=== PATIENT | female | born 1995 | race Caucasian/White ===

== ENCOUNTER 2019-06-06 17:08 | Emergency (ER) | payer OTHER ==
[~2019-06-06] VITALS: Ht 152.4 cm; Wt 88.0 kg
[2019-06-06 18:20] VITALS: BP 142/89
== END 2019-06-06 18:20 | disposition home or self-care (01) ==
LOC: ED 17:08
DX: T63.481A Toxic effect of venom of other arthropod, accidental (unintentional), initial encounter (principal)

== ENCOUNTER 2019-08-18 12:35 | Emergency (ER) | payer OTHER ==
[~2019-08-18] VITALS: Ht 152.4 cm; Wt 84.0 kg
[2019-08-18] MEDS ORDERED: PENICILLN VK500 MG PO (12:57)
[2019-08-18 13:05] VITALS: BP 134/77
== END 2019-08-18 13:05 | disposition home or self-care (01) ==
LOC: ED 12:35
DX: K04.7 Periapical abscess without sinus (principal)

== ENCOUNTER 2019-11-08 | Emergency (ER) | payer OTHER ==
[~2019-11-08] MED LIST: PENICILLN VK500 MG PO
[2019-11-08 15:07] LABS: HEMATOCRIT 34.8 % (37.0-47.0); HEMOGLOBIN 11.6 g/dl (12.0-16.0); IMMATURE GRANULOCYTES 0.5 % (0.0-5.0); MEAN CORPUSCULAR HGB 28.8 pG CALC (26.0-32.0); MEAN CORPUSCULAR HGB CONC 33.3 g/L CALC (32.0-36.0); NEUT# 4.12 thou/uL (2.00-7.15); RED BLOOD COUNT 4.03 mill/uL (4.20-5.60)
[2019-11-08 15:10] LABS: MEAN CELL VOLUME 86.4 fL CALC (80.0-100.0)
[2019-11-08 15:27] LABS: ACT PARTIAL THROMBO TIME 25.7 SECONDS (20.0-32.5)
[2019-11-08 15:28] LABS: ALKALINE PHOSPHATASE 72 u/l (38-126); ANION GAP 12 (6-22 (CALC)); BILIRUBIN, TOTAL 0.3 mg/dL (0.0-1.4); BUN 14 mg/dL (7-17); BUN/CREATININE RATIO 23 (12-20 (CALC)); CARBON DIOXIDE 22 mmol/l (22-30); CHLORIDE 107 mmol/l (95-108); CREATININE 0.6 mg/dL (0.5-1.0); GFR > 60 ML/MIN (>=60 (CALC)); GFR FOR AFR.AMER. > 60 ML/MIN (>=60 (CALC)); LIPASE 55 u/l (23-300); POTASSIUM 4.2 mmol/l (3.5-5.1); SGOT/AST 26 u/l (14-36); SODIUM 137 mmol/l (137-146); TOTAL PROTEIN 7.1 g/dL (6.3-8.2)
== END 2019-11-08 19:07 | disposition home or self-care (01) | DRG 605 ==
DX: S00.83XA Contusion of other part of head, initial encounter (principal); S60.222A Contusion of left hand, initial encounter; S60.221A Contusion of right hand, initial encounter; S70.01XA Contusion of right hip, initial encounter; S80.01XA Contusion of right knee, initial encounter; S40.011A Contusion of right shoulder, initial encounter; S60.412A Abrasion of right middle finger, initial encounter; T14.8XXA Other injury of unspecified body region, initial encounter; V13.4XXA Pedal cycle driver injured in collision with car, pick-up truck or van in traffic accident, initial encounter

== ENCOUNTER 2019-11-24 12:39 | Emergency (ER) | payer OTHER ==
[2019-11-24] MEDS ORDERED: AMOXICILLIN875 MG PO (13:49)
[2019-11-24 14:00] VITALS: BP 131/77
== END 2019-11-24 14:00 | disposition home or self-care (01) ==
LOC: ED 12:39
DX: J02.9 Acute pharyngitis, unspecified (principal)

== ENCOUNTER 2020-10-14 07:59 | Observation (INO) | payer OTHER ==
[~2020-10-14] VITALS: Ht 162.6 cm; Wt 96.0 kg
[~2020-10-14 07:59] MED LIST changes: +AMOXICILLIN875 MG PO
--- NOTE | 2020-10-14 08:10 | NUR ---
PT AMBULATED TO ROOOM WITH STEADY GAIT, FOR BEDSIDE TRIAGE.
--- NOTE | 2020-10-14 08:26 | NUR ---
PT AWARE OF NEED FRO URINE SPECIMEN
--- NOTE | 2020-10-14 08:45 | NUR ---
LABS AND URINE OBTAINED BY
--- NOTE | 2020-10-14 08:55 | NUR ---
COVID SWAB COLLECTED, ISOLATION PRECAUTIONS INITIATED.
[2020-10-14 09:10] LABS: URINE BILIRUBIN - DIPSTICK NEGATIVE (NEGATIVE); URINE BLOOD DIPSTICK NEGATIVE (NEGATIVE); URINE COLOR YELLOW; URINE GLUCOSE - DIPSTICK NEGATIVE (NEGATIVE); URINE KETONE NEGATIVE (NEGATIVE); URINE LEUK ESTERASE NEGATIVE (NEGATIVE); URINE NITRITE - DIPSTICK NEGATIVE (Negative); URINE PH 7.5 (4.5-8.0); URINE PROTEIN - DIPSTICK NEGATIVE (NEG-TRACE); URINE SPECIFIC GRAVITY 1.015; URINE UROBILINOGEN - DIPSTICK 0.2 E.U./dL (0.2)
[2020-10-14 09:26] LABS: ALBUMIN 4.3 g/dL (3.2-5.0); ALKALINE PHOSPHATASE 76 u/l (38-126); AMYLASE 57 u/l (30-110); ANION GAP 15 (6-22 (CALC)); BILIRUBIN, TOTAL 0.4 mg/dL (0.0-1.4); BUN 18 mg/dL (7-17); BUN/CREATININE RATIO 29 (12-20 (CALC)); CARBON DIOXIDE 25 mmol/l (22-30); CHLORIDE 102 mmol/l (95-108); CREATININE 0.6 mg/dL (0.5-1.0); GFR > 60 ML/MIN (>=60 (CALC)); GFR FOR AFR.AMER. > 60 ML/MIN (>=60 (CALC)); LIPASE 58 u/l (23-300); POTASSIUM 4.2 mmol/l (3.5-5.1); SGOT/AST 27 u/l (14-36); SODIUM 137 mmol/l (137-146); TOTAL PROTEIN 7.4 g/dL (6.3-8.2)
[2020-10-14 09:28] LABS: HEMATOCRIT 37.3 % (37.0-47.0); HEMOGLOBIN 12.2 g/dl (12.0-16.0); IMMATURE GRANULOCYTES 0.3 % (0.0-5.0); MEAN CELL VOLUME 85.2 fL CALC (80.0-100.0); MEAN CORPUSCULAR HGB 27.9 pG CALC (26.0-32.0); MEAN CORPUSCULAR HGB CONC 32.7 g/dL CAL (32.0-36.0); NEUT# 5.89 thou/uL (2.00-7.15); RED BLOOD COUNT 4.38 mill/uL (4.20-5.60); RED CELL DISTRI WIDTH 12.7 % (11.5-15.5)
--- NOTE | 2020-10-14 11:35 | NUR ---
MD AT BEDSIDE TO DISCUSS RESULTS AND POC.
--- NOTE | 2020-10-14 13:24 | NUR ---
REPORT CALLED TO FLORY GOVEA.
--- NOTE | 2020-10-14 13:30 | NUR ---
PT REPORT/SBAR RECEIVED FROM ED NURSE ZULEYKA JONES RN.
--- NOTE | 2020-10-14 13:45 | NUR ---
TO MED SURG VIA STRETCHER.
[2020-10-14 13:55] VITALS: BP 118/67
--- NOTE | 2020-10-14 13:55 | NUR ---
PT ARRIVED VIA STRETCHER FROM ED ACCOMPANIED BY ZULEYKA JONES RN;PT AMBULATED TO BED WITH MINIMAL ASSISTANCE;PT VITALS WERE TAKEN AND WITHIN NORMAL LIMITS;PT HAS NO TELE OR O2 IN PLACE;ASSESSMENT COMPLETED;#20G IV IN LAC IS RUNNING NS @150ML/HR AND IS FREE OF COMPLICATIONS AT THIS TIME;PT ALLERGY [place] WAS PLACED;PT BELONGING INVENTORY WAS COMPLETED;PT WAS ORIENTED TO ROOM;SAFETY PRECAUTIONS IN PLACE;CALL LIGHT LEFT WITHIN REACH;PT INSTRUCTED TO CALL WITH ANY QUESTIONS OR CONCERNS;WILL CONTINUE TO MONITOR.
[2020-10-14 16:05] VITALS: BP 121/67
--- NOTE | 2020-10-14 16:40 | NUR ---
PT WAS FOUND RESTING IN BED;PT REPORTS PAIN OF 9/10;PT WAS GIVEN TORADOL 15MG IV PUSH;IV SITE IS PATENT AND FREE OF COMPLICATIONS AT THIS TIME;NO REPORTS OF NAUSEA OR VOMITING; SAFETY PRECAUTIONS IN PLACE;BED IN LOWEST POSITION;CALL LIGHT WITHIN REACH;WILL REASSESS PAIN AND CONTINUE TO MONITOR.
[2020-10-14 19:27] VITALS: BP 118/64
--- NOTE | 2020-10-14 20:03 | NUR ---
PHYSICAL ASSESMENT COMPLETE. PT CURRENTLY DENIES PAIN OR DISCOMFORT. SCHEDULED MEDICATIONS AND PRN MEDICATION ADMINISTERED, SEE E-MAR. PT DENIES ANY NEEDS AT THIS TIME. PLAN OF CARE REVIEWED, PT DENIES QUESTIONS, VERBALIZES UNDERSTANDING. ITEMS WITHIN REACH, BED LOCKED IN LOW POSITION W/ BEDRAILS UP X2. CALL RANGEL WITHIN REACH, AGREES TO CALL PRN.
--- NOTE | 2020-10-15 00:03 | NUR ---
PT LAYING IN BED WITH EYES CLOSED, APPEARS TO BE SLEEPING, APPEARS COMFORTABLE AND IN NO DISTRESS. RESPIRATIONS REGULAR AND UNLABORED. ITEMS REMAIN WITHIN REACH, CALL RANGEL REMAINS WITHIN REACH. BED REMAINS LOCKED AND IN LOW POSITION WITH BEDRAILS UP X2. WILL CONTINUE TO MONITOR.
--- NOTE | 2020-10-15 04:30 | NUR ---
PT RESTING IN BED, NO SIGNS OF DISTRESS NOTED, RESP EVEN AND UNLABORED. PT VOICES NO NEEDS OR COMPLAINTS AT THIS TIME. CALL LIGHT IN REACH, CONTINUE TO MONITOR.
[2020-10-15 04:38] VITALS: BP 101/64
[2020-10-15 05:17] LABS: HEMATOCRIT 33.3 % (37.0-47.0); HEMOGLOBIN 10.8 g/dl (12.0-16.0); MEAN CELL VOLUME 85.6 fL CALC (80.0-100.0); MEAN CORPUSCULAR HGB 27.8 pG CALC (26.0-32.0); MEAN CORPUSCULAR HGB CONC 32.4 g/dL CAL (32.0-36.0); RED BLOOD COUNT 3.89 mill/uL (4.20-5.60); RED CELL DISTRI WIDTH 12.7 % (11.5-15.5)
[2020-10-15 05:44] LABS: ANION GAP 9 (6-22 (CALC)); BUN 11 mg/dL (7-17); BUN/CREATININE RATIO 18 (12-20 (CALC)); CARBON DIOXIDE 21 mmol/l (22-30); CHLORIDE 108 mmol/l (95-108); CREATININE 0.6 mg/dL (0.5-1.0); GFR > 60 ML/MIN (>=60 (CALC)); GFR FOR AFR.AMER. > 60 ML/MIN (>=60 (CALC)); MAGNESIUM 1.8 mg/dL (1.6-2.3); POTASSIUM 3.6 mmol/l (3.5-5.1); SODIUM 135 mmol/l (137-146)
--- NOTE | 2020-10-15 08:00 | NUR ---
PATIENT ASLEEP. NO COMPLAINTS OF NAUSEA OR PAIN AT THIS TIME
[2020-10-15 12:00] VITALS: BP 110/60
--- NOTE | 2020-10-15 12:00 | NUR ---
PATIENT CATSCAN SHOWED NO BOWEL OBSTRUCTION AND POSSIBLE OVARIAN CYSTS. PAULA SAWYER TO DC BY AND WILL FOLLOW UP WITH OBGYN
[2020-10-15] MEDS ORDERED: ZOFRAN4 MG/TAB PO (13:14)
[2020-10-15] MEDS ORDERED: MOTRIN800 MG PO (13:15)
[2020-10-15 14:40] VITALS: BP 130/76
== END 2020-10-15 16:57 | disposition home or self-care (01) ==
LOC: ED 07:59 → ED-I 11:36 → ED 11:47 → MS2 11:48
PROVIDERS: Emergency Medicine; Nurse Practitioner; ADMIT Internal Medicine; ATTEND Internal Medicine
DX: K56.600 Partial intestinal obstruction, unspecified as to cause (principal); N83.201 Unspecified ovarian cyst, right side; E87.2 Acidosis; D69.3 Immune thrombocytopenic purpura; Z20.822 Contact with and (suspected) exposure to COVID-19
CPT/HCPCS: G0378; Q9967

== ENCOUNTER 2021-01-25 15:59 | Emergency (ER) | payer OTHER ==
[~2021-01-25] VITALS: Ht 162.6 cm; Wt 99.0 kg
[~2021-01-25 15:59] MED LIST changes: +MOTRIN800 MG PO; +ZOFRAN4 MG/TAB PO
[2021-01-25 17:27] VITALS: BP 134/81
== END 2021-01-25 17:35 | disposition home or self-care (01) ==
LOC: ED 15:59
DX: B34.9 Viral infection, unspecified (principal); J45.909 Unspecified asthma, uncomplicated; D69.3 Immune thrombocytopenic purpura; Z20.822 Contact with and (suspected) exposure to COVID-19